=== PATIENT | male | born 1990 | race Caucasian/White ===

== ENCOUNTER 2017-02-19 11:16 | Emergency (ER) | payer BC ==
[~2017-02-19] VITALS: Ht 190.5 cm; Wt 136.0 kg
[2017-02-19 11:19] VITALS: TEMP 36.6; Ht 190.5 cm; Wt 136.0 kg
[2017-02-19] MEDS ORDERED: KETOROLAC TROMETHAMINE 60 MG/2 ML VIAL IM STA (12:09)
--- NOTE | 2017-02-19 13:02 | DIAGNOSTIC IMAGING REPORT ---
FLUOROSCOPIC IMAGES OF THE LUMBAR SPINE CLINICAL HISTORY: Lower back pain radiating into lower extremities. COMPARISON: Lumbar spine radiograph April 22, 2016. FLUOROSCOPY TIME: FINDINGS: Mild levoscoliosis of the lumbar spine is noted. No fracture or suspicious lesion is present. Osteophytosis is noted with thin the lower thoracic spine. Disc spaces are preserved within the lumbar spine. IMPRESSION: 1. No acute lumbar spine fracture. 2. Minimal levoscoliosis of the lumbar spine with mild degenerative disc disease within the lower thoracic spine. Electronically signed by: Josiah Pruitt M.D. 02/19/2017 1:01 PM Dictated Date/Time: 02/19/2017 1:00 PM
[2017-02-19] MEDS ORDERED: PRED20TA PO (13:40)
[2017-02-19] MEDS ORDERED: OXYC1TAB3 PO (13:40)
[2017-02-19 13:47] VITALS: BP 141/87; PULSE 90; O2SAT 96
--- NOTE | 2017-02-19 15:40 | EMERGENCY ROOM VISIT NOTE ---
History Report prepared by Bhavana: Eliezer Borrego Under the Supervision of: Dr. Paramjit Montemayor D.O. First contact with patient: 11:52 Chief Complaint: BACK PAIN Stated Complaint: LOWER BACK AND LEG PAIN History of Present Illness The patient is a 26 year old male who presents to the Emergency Room with complaints of persistent lower back pain that began night, three days prior to arrival. The patient states that his symptoms began with a migraine headache morning, and his back pain onset later that evening. He describes it as "throbbing." The pain is radiating down the left leg as well. It is worsened by bending to the left specifically, and nothing seems to improve the pain. 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 He denies any trauma, or specific event that could have caused the pain. He also denies any weakness, numbness in the legs, change in vision, fevers, chest pain, shortness of breath, nausea, vomiting, diarrhea, pain with urination, and melena. No trouble urinating or moving her bowels. No IV drug use. Source of History: patient Onset: Three days THERAPIST Position: back (lower) Quality: other (Throbbing) Timing: other (Persistent) Modifying Factors (Worsening): other (Leaning to the left) Associated Symptoms: No chest pain, No SOB, No weakness, No numbness Review of Systems See HPI for pertinent positives & negatives. A total of 10 systems reviewed and were otherwise negative. Past Medical & Surgical Hypertension Family History Diabetes mellitus Social History Smoking Status: Former Smoker Marital Status: in relationship Housing Status: lives with family, lives with significant other Occupation Status: employed Current/Historical Medications Scheduled Prednisone (Prednisone), 2 TAB PO DAILY Scheduled PRN Oxycodone Immediate Rel Tab (Roxicodone Ir), 5 MG PO Q6H PRN for Pain Allergies Coded Allergies: Penicillins (Verified Allergy, Intermediate, allergy as child, 02/19/17) Physical Exam Vital Signs Date Time Temp Pulse Resp B/P (MAP) Pulse Ox O2 Delivery O2 Flow Rate FiO2 02/19/17 13:47 90 20 141/87 96 02/19/17 12:41 83 20 135/86 95 Room Air 02/19/17 11:19 36.6 105 20 154/92 96 Physical Exam GENERAL: Sitting up in bed, alert, well appearing, well nourished, no distress, non-toxic EYE EXAM: normal conjunctiva OROPHARYNX: no exudate, no erythema, lips, buccal mucosa, and tongue normal and mucous membranes are moist NECK: supple, no nuchal rigidity, no adenopathy, non-tender LUNGS: Clear to auscultation. Normal chest wall mechanics HEART: no murmurs, S1 normal and S2 normal ABDOMEN: abdomen soft, non-tender, normo-active bowel sounds, no masses, no rebound or guarding. BACK: Back is symmetrical on inspection and there is no deformity There is acute reproducible pain just superior to the left SI joint, tracking through the upper portion of the left gluteus. SKIN: no rashes and no bruising UPPER EXTREMITIES: upper extremities are grossly normal. LOWER EXTREMITIES: No pitting edema. Flexion/extension of the hip, knee, ankle, EHL are 5/5 bilaterally. Patient able to walk on heel and toes. Gross sensation is intact. Patellar/Achilles reflexes are 1/4 bilaterally. NEURO EXAM: Normal sensorium. No weakness of extremities. Medical Decision & Procedures ER Provider Diagnostic Interpretation: Radiology results as stated below per my review and the radiologist's interpretation: FLUOROSCOPIC IMAGES OF THE LUMBAR SPINE CLINICAL HISTORY: Lower back pain radiating into lower extremities. COMPARISON: Lumbar spine radiograph April 22, 2016. FLUOROSCOPY TIME: FINDINGS: Mild levoscoliosis of the lumbar spine is noted. No fracture or suspicious lesion is present. Osteophytosis is noted with thin the lower thoracic spine. Disc spaces are preserved within the lumbar spine. IMPRESSION: 1. No acute lumbar spine fracture. 2. Minimal levoscoliosis of the lumbar spine with mild degenerative disc disease within the lower thoracic spine. Electronically signed by: Josiah Pruitt M.D. 02/19/2017 1:01 PM Dictated Date/Time: 02/19/2017 1:00 PM Medications Administered Medications (Trade) Dose Ordered Sig/Mack Route Start Time Stop Time Status Last Admin Dose Admin Ketorolac Tromethamine (Toradol Inj) 60 mg NOW STAT IM 02/19/17 12:09 02/19/17 12:10 DC 02/19/17 12:13 60 MG Prednisone (PredniSONE TAB) 60 mg NOW STAT PO 02/19/17 12:09 02/19/17 12:10 DC 02/19/17 12:13 60 MG ED Course ED COURSE: Vital signs were reviewed and showed tachycardic and hypertensive vitals The patients medical record was reviewed The above diagnostic studies were performed and reviewed. ED treatments and interventions as stated above. 1200: The patient was evaluated in room C2. A complete history and physical examination was performed. 1209: Ordered Prednisone 60 mg PO, Toradol 60 mg IM. 1342: Upon reevaluation, the patient is comfortable in bed.I discussed my findings with the patient and he understands and agrees with the treatment plan. Based on the patients age, coexisting illnesses, exam and lab findings the decision to treat as an outpatient was made. The patient remained stable while under my care. The patient appeared well at the time of discharge. Medical Decision Differential diagnoses includes but is not limited to lumbar radiculopathy, muscle strain, facture, cauda equina, mass, and disc herniation. Patient is a 26-year-old male who presents the ER for pain in his left lower back which feels exactly like his previous back issues over a year ago. Pain started last . He does work lifting and doing heavy labor. X-ray show no acute fracture. Patient is completely neurologically intact. He is given IM Toradol/ steroids and discharged follow-up with PCP with muscle skeletal back pain. Discussed with Pt concerning signs and symptoms to watch out for. Pt was instructed to follow up with their PCP and discussed with the patient their option to return to the ED at anytime for persistent or worsening symptoms. The appropriate anticipatory guidance and out-patient management, including indications for return to the emergency department, were explained at length to the patient and understood. [place] Drug Monitoring Program Search Results: patient reviewed within database, no issues identified Medication Reconcilliation Current Medication List: was personally reviewed by me Blood Pressure Screening Patient's blood pressure: Elevated blood pressure Impression Primary Impression: Strain of lumbar region Scribe Attestation The scribe's documentation has been prepared under my direction and personally reviewed by me in its entirety. I confirm that the note above accurately reflects all work, treatment, procedures, and medical decision making performed by me. Departure Information Dispostion Home / Self-Care Prescriptions Prednisone (Prednisone) 20 Mg Tab 2 TAB PO DAILY for 5 Days, TAB Prov: Paramjit Montemayor, DO 02/19/17 Oxycodone Immediate Rel Tab (ROXICODONE IR) 5 Mg Tab 5 MG PO Q6H Y for Pain, #15 TAB Prov: Sim Paramjit Serrano, DO 02/19/17 Referrals No Doctor, Assigned (PCP) Forms HOME CARE DOCUMENTATION FORM, IMPORTANT VISIT INFORMATION Patient Instructions [facility] Additional Instructions Please follow up with your primary care doctor with in the next 24 hours. Any worsening of your symptoms, please return to the ED immediately. This includes any fevers greater than 100.4, worsening pain, weakness or numbness in legs, inability to urinate or move bowels, or any other concerning signs or symptoms from your standpoint. You were given medications during this visit that will inhibit your ability to drive, operate machinery and work. Please do NOT drive, operate machinery or work for the next 12hrs. You were also given a prescription for a narcotic. While taking this medication you should also not drive, operate machinery and or work. Problem Qualifiers Primary Impression: Strain of lumbar region Encounter type: initial encounter Qualified Codes: S39.012A - Strain of muscle, fascia and tendon of lower back, initial encounter
== END 2017-02-19 13:49 | disposition home or self-care (01) ==
LOC: C.EDB 11:18 → C.EDC 13:49
DX: S39.012A Strain of muscle, fascia and tendon of lower back, initial encounter (principal); X58.XXXA Exposure to other specified factors, initial encounter; I10 Essential (primary) hypertension; Z83.3 Family history of diabetes mellitus; Z87.891 Personal history of nicotine dependence